=== PATIENT | female | born 1970 | race Caucasian/White ===

== ENCOUNTER 2021-07-28 20:34 | Emergency (ER) | payer BC, MEDICAID ==
[~2021-07-28] VITALS: Ht 154.9 cm; Wt 63.1 kg
[~2021-07-28 20:34] MED LIST: ACET500C48; CAYE450C; GLUTATHIONE; OMEGA; POTA-205 PO; [UNRECOGNIZED DRUG - CODE]; [UNRECOGNIZED DRUG - OTHER]; [UNRECOGNIZED DRUG - OTHER]; ginko biloba; lycopene; red yeast rice; vinpocetine
--- NOTE | 2021-07-28 20:54 | NUR ---
DR CHANDLER ASSESSED PT IN TRIAGE ROOM.
[2021-07-28] MEDS ORDERED: amox tr/potassium clavulanate 875/125mg TAB PO ONE (20:55)
[2021-07-28] MEDS ORDERED: HYDR-3972 PO (21:01)
[2021-07-28] MEDS ORDERED: AMOX-117 PO (21:01)
[2021-07-28 22:05] VITALS: BP 150/71
== END 2021-07-28 21:30 | disposition home or self-care (01) ==
LOC: ER 20:35
DX: K04.7 Periapical abscess without sinus (principal); F31.9 Bipolar disorder, unspecified; F17.200 Nicotine dependence, unspecified, uncomplicated; F12.10 Cannabis abuse, uncomplicated; Z88.8 Allergy status to other drugs, medicaments and biological substances; Z79.899 Other long term (current) drug therapy
CPT/HCPCS: 99283

== ENCOUNTER 2021-10-02 14:04 | Emergency (ER) | payer BC, MEDICAID ==
[~2021-10-02] VITALS: Ht 154.9 cm; Wt 61.4 kg
[2021-10-02 14:26] VITALS: BP 138/81
--- NOTE | 2021-10-02 17:05 | NUR ---
Patient came to the desk again requesting when the doctor would be seeing her. She was informed that we are short a provider today, and she responded that at this point she would be more comfortable at home than here or may try going to [facility]. Patient was recommended to stay but refused. Patient was seen ambulating out of [facility] with a steady gait, no acute distress.
== END 2021-10-02 17:21 | disposition left against medical advice (07) ==
LOC: ER 14:04
DX: K04.7 Periapical abscess without sinus (principal); Z53.21 Procedure and treatment not carried out due to patient leaving prior to being seen by health care provider